=== PATIENT | male | born 1995 | race Caucasian/White ===

== ENCOUNTER → 2025-01-22 | Outpatient (BNVA) | payer BC, SELFPAY | END | disposition home or self-care (01) | PROVIDERS: PCP Family Medicine; Referring Provider Family Medicine; Visit Provider Urology | DX: N50.3 Cyst of epididymis (principal); I10 Essential (primary) hypertension; R31.9 Hematuria, unspecified; F41.9 Anxiety disorder, unspecified; E66.9 Obesity, unspecified; Z68.32 Body mass index [BMI] 32.0-32.9, adult; Z71.3 Dietary counseling and surveillance | CPT/HCPCS: 81003; 99212; G0463 ==

== ENCOUNTER → 2025-01-22 | Outpatient (CLI) | payer BC, SELFPAY ==
--- NOTE | 2025-01-22 15:54 | XR_ITS ---
EXAMINATION: Testicular sonography complete TECHNIQUE: Grayscale sonographic images testes, assessment arterial inflow and venous outflow Doppler spectral analysis color flow analysis Date and time: January 22, 2025, 1612 hours INDICATIONS: History epididymal cysts FINDINGS: Right testis 4.6 cm epididymis 1.6 cm 7 cm right epididymal cyst Arterial flow to the testicle. No testicular mass Testicular microlithiasis. Moderate varicocele Mild hydrocele Left testis 4.0 cm epididymis 18 mm 12 mm 6 mm epididymal cyst Arterial flow to testicle. No testicular mass Moderate varicocele Mild hydrocele Impression: No testicular torsion or testicular mass Benign epididymal cysts Moderate bilateral varicoceles
[2025-01-22 16:44] LABS: Collection Type, Urine Clean Catch; Squamous Epithelial Cell,Urine 0 /hpf (0-5)
[2025-01-22 17:29] LABS: Bilirubin,Urine Negative (Negative); Blood,Urine 1+ (Negative); Clarity,Urine Clear (Clear/Hazy); Color,Urine Lt-Yellow (Lt Yel-Yel); Glucose, Urine Negative (Negative); Ketones,Urine Negative (Negative); Leukocyte Esterase,Urine Negative (Negative); Nitrite,Urine Negative (Negative); PH,Urine 7.0 (5.0-7.0); Protein,Urine Negative (Neg - Trace); RBC,Urine 12 /hpf (0-3); Specific Gravity,Urine 1.021 (1.001-1.035); Urobilinogen,Urine Negative mg/dL (0.0-1.0); WBC,Urine 1 /hpf (0-5)
[2025-01-22 17:42] LABS: Alanine Aminotransferase 32 U/L (10-49); Albumin, Serum 5.2 gm/dL (3.5-5.0); Albumin/Globulin Ratio 2.6 (1.2-2.2); Alkaline Phosphatase 96 U/L (46-116); Anion Gap 10 (7-16); Aspartate Amino Transferase 26 U/L (0-34); BUN/Creatinine Ratio 11 Ratio (12-20); Bilirubin,Total 0.5 mg/dL (0.3-1.2); Blood Urea Nitrogen 11 mg/dL (9-23); Calcium 9.6 mg/dL (8.3-10.6); Calcium (Corrected) 9.6 mg/dL (8.5-10.1); Carbon Dioxide 27.8 mMol/L (20.0-31.0); Chloride 102 mMol/L (98-107); Creatinine (Component) 1.0 mg/dL (0.6-1.3); Globulin 2.0 gm/dL (2.3-3.5); Glucose 95 mg/dL (74-106); Osmolality,Calculated 278 (275-295); Potassium 3.7 mMol/L (3.4-5.1); Sodium 140 mMol/L (136-145); Total Protein 7.2 gm/dL (5.7-8.2); eGFR > 60 See Note
== END | disposition home or self-care (01) ==
LOC: CDIM 15:51 → COPL 16:37
PROVIDERS: PCP Family Medicine; Referring Provider Urology; Visit Provider Radiology Diagnostic Radiology
DX: N50.3 Cyst of epididymis (principal); I86.1 Scrotal varices; R31.1 Benign essential microscopic hematuria
CPT/HCPCS: 36415; 76870; 80053; 81001